=== PATIENT | female | born 1995 | race African-American/Black ===

== ENCOUNTER 2020-09-15 08:47 | Inpatient (IN) ==
[2020-09-15] MEDS ORDERED: MEPERIDINE 50 MG/1 ML VIAL IV PRN (09:07)
[2020-09-15] MEDS ORDERED: ONDANSETRON 4 MG/2 ML VIAL IV PRN ×2 (09:07→15:22)
[2020-09-15] MEDS ORDERED: LACTATED RINGERS 1,000 ML IV ONE (09:12)
[2020-09-15] MEDS ORDERED: CITRIC ACID/SODIUM CITRATE 30 ML UDCUP PO ONE (09:12)
[2020-09-15] MEDS ORDERED: ONDANSETRON 4 MG/2 ML VIAL IV ONE (09:12)
[2020-09-15] MEDS ORDERED: ePHEDrine 50 MG/ML VIAL IV PRN (09:12)
[2020-09-15] MEDS ORDERED: FAMOTIDINE 20 MG/2 ML VIAL IV ONE (09:12)
[2020-09-15] MEDS ORDERED: PROMETHAZINE 25 MG/1 ML VIAL IM ONE (09:12)
[2020-09-15] MEDS ORDERED: OXYTOCIN/LR 30 UNIT/1,000 ML BAG IV ONE (09:12)
[2020-09-15] MEDS ORDERED: NALOXONE 0.4 MG/ML VIAL IV PRN (09:12)
[2020-09-15] MEDS ORDERED: METHYLERGONOVINE 0.2 MG/1 ML AMP ONE (09:15)
[2020-09-15] MEDS ORDERED: miSOPROStoL 200 MCG TABLET ONE (09:15)
[2020-09-15] MEDS ORDERED: CARBOPROST TROMETHAMINE 250 MCG/ML AMP IM ONE (09:15)
[2020-09-15] MEDS ORDERED: LIDOCAINE 1% 50 ML VIAL ONE (09:16)
[2020-09-15 09:29] LABS: Basophils % 0.1 % (0.0-0.8); Hematocrit 35.9 VOL% (35.7-47.0); Hemoglobin 11.8 GM/DL (12.0-16.0); Immature Granulocytes % 0.5 %; Immature Granulocytes Absolute 0.07 #; Lymphocytes # 1.6 10*3/uL (1.4-4.0); Lymphocytes % 11.3 % (21.3-54.2); Mean Corpuscular HGB Conc 32.9 GM/DL (32-36); Mean Corpuscular Volume 91.6 FL (87-102); Monocytes % 6.4 % (1.7-12.7); Neutrophils % 81.7 % (38.7-73.9); Platelet Count 229 T/CUMM (130-400); Red Blood Count 3.92 MC/CUMM (3.8-5.5); Red Cell Distribution Width 14.7 % (9.3-17.3); White Blood Count 13.9 T/CUMM (4-12)
[2020-09-15] MEDS ORDERED: LACTATED RINGERS 1,000 ML IV SCH (09:30)
[2020-09-15] MEDS ORDERED: fentaNYL 2 MCG/ROPIV 0.2% EPID 100 ML EPIDURAL SCH (09:30)
[2020-09-15 09:47] LABS: Albumin 2.7 G/DL (3.4-5.0); Bilirubin,Total 0.4 MG/DL (0.2-1.0); Calcium 8.6 MG/DL (8.5-10.1); Osmolality,Calculated 270.8 MOS/KG (273-304); Potassium 3.9 MMOL/L (3.5-5.1); Total Protein 6.6 G/DL (6.4-8.2); Uric Acid 6.2 MG/DL (2.6-6.0)
[2020-09-15] MEDS ORDERED: OXYTOCIN/LR 20 UNIT/1,000 ML BAG IV SCH (10:30)
[2020-09-15 14:52] LABS: Cord Arterial Blood HCO3 17.7 MMOL/L; Cord Venous Blood HCO3 19.8 MMOL/L; Cord Venous Blood PCO2 47.3 MMHG
[2020-09-15] MEDS ORDERED: BISACODYL 10 MG SUPP RECTAL PRN (15:22)
[2020-09-15] MEDS ORDERED: OXYTOCIN/LR 20 UNIT/1,000 ML BAG IV ONE (15:22)
[2020-09-15] MEDS ORDERED: oxyCODONE/ACETAMINOPHEN 5-325 MG TABLET PO PRN ×2 (15:22)
[2020-09-15] MEDS ORDERED: ACETAMINOPHEN 325 MG TABLET PO PRN (15:22)
[2020-09-15] MEDS ORDERED: HYDROCORTISONE 2.5% RECTAL CREAM 30 GM TUBE TOP PRN (15:22)
[2020-09-15] MEDS ORDERED: DIPH/TET/ACEL PERT BOOSTER VACCINE 0.5 ML VIAL IM ONE (15:22)
[2020-09-15] MEDS ORDERED: MEASLES/MUMPS/RUBELLA VACCINE 0.5 ML VIAL SUBCUT ONE (15:22)
[2020-09-15] MEDS ORDERED: RHO(D) IMMUNE GLOBULIN 300 MCG SYRINGE IM ONE (15:22)
[2020-09-15] MEDS ORDERED: WITCH HAZEL PADS 100/JAR TOP PRN (15:22)
[2020-09-15] MEDS ORDERED: BENZOCAINE 20%/MENTHOL 0.5% SPRAY 56 GM CAN TOP PRN (15:22)
[2020-09-15] MEDS ORDERED: LANOLIN 50% CREAM 0.3 OZ TUBE TOP PRN (15:22)
[2020-09-15] MEDS: IBUPROFEN 800 MG TABLET PO PRN (16:15)
[2020-09-16] MEDS: IBUPROFEN 800 MG TABLET PO PRN ×4 (00:02→21:39)
[2020-09-16] MEDS: DOCUSATE SODIUM 100 MG CAPSULE PO SCH ×3 (00:18→21:36)
[2020-09-16 05:30] LABS: Basophils % 0.2 % (0.0-0.8); Eosinophils % 0.2 % (0.00-10.9); Hematocrit 25.6 VOL% (35.7-47.0); Immature Granulocytes % 0.7 %; Immature Granulocytes Absolute 0.12 #; Lymphocytes # 2.7 10*3/uL (1.4-4.0); Lymphocytes % 15.8 % (21.3-54.2); Mean Corpuscular HGB Conc 34.4 GM/DL (32-36); Mean Corpuscular Volume 91.4 FL (87-102); Mean Platelet Volume 10.6 FL (9.6-12.0); Monocytes % 5.7 % (1.7-12.7); Neutrophils % 77.4 % (38.7-73.9); Red Cell Distribution Width 14.9 % (9.3-17.3); White Blood Count 17.1 T/CUMM (4-12)
[2020-09-16 05:33] LABS: Hemoglobin 8.8 GM/DL (12.0-16.0); Platelet Count 166 T/CUMM (130-400)
[2020-09-16] MEDS: FERROUS SULFATE 325 MG TABLET PO SCH ×2 (08:45→21:36)
[2020-09-17] MEDS: IBUPROFEN 800 MG TABLET PO PRN ×2 (06:26→12:09)
[2020-09-17 07:54] VITALS: BP 113/70
[2020-09-17] MEDS: FERROUS SULFATE 325 MG TABLET PO SCH (08:41)
[2020-09-17] MEDS: DOCUSATE SODIUM 100 MG CAPSULE PO SCH (08:41)
== END 2020-09-17 15:40 | disposition home or self-care (01) | DRG 807 ==
LOC: N.LDOUT 08:47 → N.LD 08:48 → N.OB 18:00
PROVIDERS: ADMIT Obstetrics & Gynecology; ATTEND Obstetrics & Gynecology

== ENCOUNTER 2020-09-21 04:30 | Observation (INO) ==
[2020-09-21 05:37] LABS: Basophils % 0.3 % (0.0-0.8); Eosinophils # 0.2 10*3/uL (0.0-0.87); Eosinophils % 1.9 % (0.00-10.9); Hematocrit 28.4 VOL% (35.7-47.0); Hemoglobin 9.2 GM/DL (12.0-16.0); Immature Granulocytes Absolute 0.09 #; Mean Corpuscular HGB Conc 32.4 GM/DL (32-36); Mean Platelet Volume 10.1 FL (9.6-12.0); Monocytes % 6.1 % (1.7-12.7); Neutrophils % 69.7 % (38.7-73.9); Platelet Count 262 T/CUMM (130-400); Red Blood Count 3.02 MC/CUMM (3.8-5.5); Red Cell Distribution Width 15.3 % (9.3-17.3); White Blood Count 9.3 T/CUMM (4-12)
[2020-09-21 06:23] LABS: Albumin 2.5 G/DL (3.4-5.0); Bilirubin,Total 0.4 MG/DL (0.2-1.0); Calcium 7.9 MG/DL (8.5-10.1); Osmolality,Calculated 283.8 MOS/KG (273-304); Potassium 3.6 MMOL/L (3.5-5.1)
[2020-09-21 07:00] LABS: Bilirubin,Urine Negative (Negative); Blood, Urine Large mg/dL (Negative); Glucose,Urine (UA) Negative (Negative); Ketones,Urine 5 mg/dL (Negative); Nitrite,Urine Negative (Negative); Protein,Urine Negative; RBC,Urine 25 /HPF (0-4); Squamous Epithelial Cell,Urine Occasional /HPF (0-10); Urine Appearance CLEAR (Clear); Urine Color Straw (Yellow); Urine Specific Gravity 1.036 (1.001-1.035); Urine Urobilinogen < 2.0 EU/DL (0.2-1.0)
[2020-09-21 08:40] LABS: Barbiturates Screen,Urine Negative (Negative); Benzodiazepines Screen,Urine Negative (Negative); Cannabinoid Screen,Urine Negative (Negative); Opiate Screen,Urine Negative (Negative); Phencyclidine Screen,Urine Negative (Negative)
[2020-09-21] MEDS ORDERED: FUROSEMIDE 40 MG/4 ML VIAL IV STA (08:43)
[2020-09-21] MEDS ORDERED: MAGNESIUM HYDROXIDE SUSP 30 ML UDCUP PO PRN (08:54)
[2020-09-21] MEDS ORDERED: ACETAMINOPHEN 325 MG TABLET PO PRN (08:54)
[2020-09-21] MEDS ORDERED: ONDANSETRON 4 MG/2 ML VIAL IV PRN (08:54)
[2020-09-21] MEDS ORDERED: IBUPROFEN 800 MG TABLET PO PRN (08:54)
[2020-09-21] MEDS ORDERED: BISACODYL 10 MG SUPP RECTAL PRN (08:54)
[2020-09-21] MEDS ORDERED: SODIUM CHLORIDE 0.45% 1,000 ML IV SCH (09:00)
[2020-09-21] MEDS: FUROSEMIDE 40 MG/4 ML VIAL IV SCH ×3 (09:33→21:16)
[2020-09-21] MEDS: ENOXAPARIN 40 MG/0.4 ML SYRINGE SUBCUT SCH (09:50)
[2020-09-21] MEDS: DOCUSATE SODIUM 100 MG CAPSULE PO SCH ×2 (09:50→19:59)
[2020-09-21] MEDS: FERROUS SULFATE 325 MG TABLET PO SCH ×2 (09:50→19:59)
[2020-09-21] MEDS: SERTRALINE 50 MG TABLET PO SCH (21:22)
[2020-09-22 08:03] VITALS: BP 147/84
[2020-09-22] MEDS: FERROUS SULFATE 325 MG TABLET PO SCH (08:32)
[2020-09-22] MEDS: DOCUSATE SODIUM 100 MG CAPSULE PO SCH (08:32)
[2020-09-22] MEDS: ENOXAPARIN 40 MG/0.4 ML SYRINGE SUBCUT SCH (10:48)
[2020-09-22] MEDS: SERTRALINE 50 MG TABLET PO SCH (11:17)
== END 2020-09-22 13:05 | disposition home or self-care (01) ==
LOC: N.ED 04:30 → N.EDINP 04:30 → N.OB 10:33
PROVIDERS: ADMIT Obstetrics & Gynecology; ATTEND Obstetrics & Gynecology

== ENCOUNTER 2021-12-31 21:29 | Inpatient (IN) ==
[2021-12-31] MEDS ORDERED: METHYLERGONOVINE 0.2 MG/1 ML AMP IM PRN (21:39)
[2021-12-31] MEDS ORDERED: miSOPROStoL 200 MCG TABLET RECTAL PRN (21:39)
[2021-12-31] MEDS ORDERED: TRANEXAMIC ACID 1,000 MG in SODIUM CHLORIDE 0.9% 100 ML IV PRN (21:39)
[2021-12-31] MEDS ORDERED: BUTORPHANOL 2 MG/ML VIAL IV PRN (21:39)
[2021-12-31] MEDS ORDERED: ONDANSETRON 4 MG/2 ML VIAL IV PRN (21:39)
[2021-12-31] MEDS ORDERED: CARBOPROST TROMETHAMINE 250 MCG/ML AMP IM PRN (21:39)
[2021-12-31] MEDS ORDERED: OXYTOCIN/LR 20 UNIT/1,000 ML BAG IV ONE (21:39)
[2021-12-31] MEDS ORDERED: MEPERIDINE 25 MG/1 ML VIAL IV PRN (21:47)
[2021-12-31] MEDS ORDERED: LACTATED RINGERS 1,000 ML IV SCH (22:00)
[2021-12-31 22:09] LABS: Basophils % 0.1 % (0.0-0.8); Eosinophils % 0.5 % (0.00-10.9); Hematocrit 32.6 VOL% (35.7-47.0); Hemoglobin 10.8 GM/DL (12.0-16.0); Immature Granulocytes % 0.6 %; Immature Granulocytes Absolute 0.05 #; Lymphocytes # 2.1 10*3/uL (1.4-4.0); Lymphocytes % 24.1 % (21.3-54.2); Mean Corpuscular HGB Conc 33.1 GM/DL (32-36); Mean Corpuscular Volume 88.3 FL (87-102); Mean Platelet Volume 9.6 FL (9.6-12.0); Monocytes # 0.7 10*3/uL (0.11-0.8); Monocytes % 8.4 % (1.7-12.7); Neutrophils % 66.3 % (38.7-73.9); Platelet Count 252 T/CUMM (130-400); Red Blood Count 3.69 MC/CUMM (3.8-5.5); Red Cell Distribution Width 14.3 % (9.3-17.3); White Blood Count 8.8 T/CUMM (4-12)
[2021-12-31 22:30] LABS: Albumin 2.7 G/DL (3.4-5.0); Bilirubin,Total 0.4 MG/DL (0.20-1.00); Calcium 8.8 MG/DL (8.5-10.1); Osmolality,Calculated 273.5 MOS/KG (273-304); Potassium 3.8 MMOL/L (3.5-5.1); Total Protein 6.8 G/DL (6.4-8.2)
[2021-12-31] MEDS ORDERED: INFLUENZA VIRUS VACCINE 0.5 ML SYRINGE IM ONE (23:00)
[2022-01-01] MEDS ORDERED: OXYTOCIN/LR 20 UNIT/1,000 ML BAG IV SCH (06:30)
[2022-01-01] MEDS ORDERED: ePHEDrine 50 MG/ML VIAL IV PRN (07:23)
[2022-01-01] MEDS ORDERED: LACTATED RINGERS 1,000 ML IV ONE (07:23)
[2022-01-01] MEDS ORDERED: NALOXONE 0.4 MG/ML VIAL IV PRN (07:23)
[2022-01-01] MEDS ORDERED: FAMOTIDINE 20 MG/2 ML VIAL IV ONE (07:23)
[2022-01-01] MEDS ORDERED: CITRIC ACID/SODIUM CITRATE 30 ML UDCUP PO ONE (07:23)
[2022-01-01] MEDS ORDERED: fentaNYL 2 MCG/ROPIV 0.2% EPID 100 ML EPIDURAL SCH (07:30)
[2022-01-01] MEDS ORDERED: OXYTOCIN IV ONE (08:00)
[2022-01-01] MEDS ORDERED: LR IV ONE (08:00)
[2022-01-01 09:16] LABS: Mucus,Urine Occasional /LPF (Occasional); RBC,Urine 2 /HPF (0-4); Squamous Epithelial Cell,Urine Occasional /HPF (0-10); Urine Appearance Clear (Clear); Urine Color Yellow (Yellow); Urine Specific Gravity 1.015 (1.001-1.035)
[2022-01-01 09:17] LABS: Bilirubin,Urine Negative (Negative); Blood, Urine Trace mg/dL (Negative); Glucose,Urine (UA) Negative (Negative); Ketones,Urine 15 mg/dL (Negative); Nitrite,Urine Negative (Negative); Protein,Urine Negative (Negative); Urine Urobilinogen 0.2 eU/dL (<2.0)
[2022-01-01 11:57] LABS: Cord Arterial Blood HCO3 18.7 MMOL/L
[2022-01-01 12:00] LABS: Cord Venous Blood HCO3 22.2 MMOL/L; Cord Venous Blood PCO2 41.6 MMHG; Cord Venous Blood PO2 31.1
[2022-01-01] MEDS ORDERED: ACETAMINOPHEN 500 MG TABLET PO ONE (13:26)
[2022-01-01] MEDS ORDERED: ACETAMINOPHEN 325 MG TABLET PO PRN (14:30)
[2022-01-01] MEDS ORDERED: RHO(D) IMMUNE GLOBULIN 300 MCG SYRINGE IM ONE (14:30)
[2022-01-01] MEDS ORDERED: BENZOCAINE 20%/MENTHOL 0.5% SPRAY 56 GM CAN TOP PRN (14:30)
[2022-01-01] MEDS ORDERED: OXYTOCIN/LR 20 UNIT/1,000 ML BAG IV ONE (14:30)
[2022-01-01] MEDS ORDERED: oxyCODONE/ACETAMINOPHEN 5-325 MG TABLET PO PRN ×2 (14:30)
[2022-01-01] MEDS ORDERED: BISACODYL 10 MG SUPP RECTAL PRN (14:30)
[2022-01-01] MEDS ORDERED: MEASLES/MUMPS/RUBELLA VACCINE 0.5 ML VIAL SUBCUT ONE (14:30)
[2022-01-01] MEDS ORDERED: HYDROCORTISONE 2.5% RECTAL CREAM 30 GM TUBE TOP PRN (14:30)
[2022-01-01] MEDS ORDERED: WITCH HAZEL PADS 100/JAR TOP PRN (14:30)
[2022-01-01] MEDS ORDERED: LANOLIN 50% CREAM 0.3 OZ TUBE TOP PRN (14:30)
[2022-01-01] MEDS ORDERED: DIPH/TET/ACEL PERT BOOSTER VACCINE 0.5 ML VIAL IM ONE (14:30)
[2022-01-01] MEDS: IBUPROFEN 800 MG TABLET PO PRN (19:59)
[2022-01-01] MEDS: DOCUSATE SODIUM 100 MG CAPSULE PO SCH (22:25)
[2022-01-02 05:32] LABS: Basophils % 0.2 % (0.0-0.8); Eosinophils # 0.1 10*3/uL (0.0-0.87); Eosinophils % 0.5 % (0.00-10.9); Hemoglobin 9.4 GM/DL (12.0-16.0); Immature Granulocytes % 0.4 %; Immature Granulocytes Absolute 0.05 #; Lymphocytes # 2.7 10*3/uL (1.4-4.0); Mean Corpuscular HGB Conc 32.4 GM/DL (32-36); Mean Corpuscular Volume 88.7 FL (87-102); Mean Platelet Volume 9.9 FL (9.6-12.0); Monocytes # 1.1 10*3/uL (0.11-0.8); Monocytes % 8.2 % (1.7-12.7); Neutrophils % 69.7 % (38.7-73.9); Platelet Count 212 T/CUMM (130-400); Red Blood Count 3.27 MC/CUMM (3.8-5.5); Red Cell Distribution Width 14.3 % (9.3-17.3); White Blood Count 12.8 T/CUMM (4-12)
[2022-01-02] MEDS: MULTIVITAMIN (PRENATAL) TABLET PO SCH (09:59)
[2022-01-02] MEDS: DOCUSATE SODIUM 100 MG CAPSULE PO SCH ×2 (09:59→21:30)
[2022-01-02] MEDS: IBUPROFEN 800 MG TABLET PO PRN (10:21)
[2022-01-02] MEDS ORDERED: FUROSEMIDE 20 MG TABLET PO ONE (21:00)
[2022-01-03] MEDS: MULTIVITAMIN (PRENATAL) TABLET PO SCH (08:33)
[2022-01-03] MEDS: DOCUSATE SODIUM 100 MG CAPSULE PO SCH (08:33)
[2022-01-03] MEDS ORDERED: INFLUENZA VIRUS VACCINE 0.5 ML SYRINGE IM ONE (10:30)
[2022-01-03 16:36] VITALS: BP 136/78
== END 2022-01-03 17:10 | disposition home or self-care (01) | DRG 807 ==
LOC: N.LDOUT 21:29 → N.LD 21:31 → N.OB 01-01 14:39
PROVIDERS: ADMIT Obstetrics & Gynecology; ATTEND Obstetrics & Gynecology